=== PATIENT | female | born 1950 | race Caucasian/White ===

== ENCOUNTER 2023-03-07 12:11 | Emergency (ER) | payer MEDICARE, OTHER, SELFPAY ==
[2023-03-07 12:47] VITALS: BP 188/79; PULSE 70; RESP 18; TEMP 36.1; O2SAT 97; BMI 36.3
--- NOTE | 2023-03-07 12:51 | DI.RAD.S_ITS ---
PROCEDURE: XR SHOULDER LT MIN 2V INDICATIONS: fall one week ago/pain TECHNIQUE: 3 views of the shoulder were acquired. COMPARISON: None. FINDINGS: Bones: No fractures or dislocations. No suspicious bony lesions. Visualized ribs appear intact. Soft tissues: No suspicious soft tissue calcifications. IMPRESSION: No fracture. No acute osseous lesion. If symptoms and/or clinical suspicion for pathology persists, further assessment with repeat radiographs (7-10 days) or advanced imaging (e.g. CT, MRI or bone scan) should be considered. Dictated by: Jennifer Mcneil MD, PhD on 03/07/2023 at 13:12 Approved by: Jennifer Mcneil MD, PhD on 03/07/2023 at 13:13
--- NOTE | 2023-03-07 14:22 | ED.UPPEXIN ---
HPI - Extremity Injury (Upper) <Mayito Daniels PA-C - Last Filed: 03/07/23 14:36> General Chief Complaint: Extremity Injury, Upper Stated Complaint: fell T-7/lt shoulder inj/pain Time Seen by Provider: 03/07/23 14:22 Source: patient Mode of arrival: Ambulatory History of Present Illness HPI narrative: 73-year-old female presents to the ED for a left shoulder injury that occurred 1 week prior to arrival. Patient had a mechanical fall last week when she slipped, falling on her left shoulder. Patient states that she has had left shoulder pain since then, making it difficult for her to sleep well at night and find a good position. Patient denies numbness, tingling, weakness. No head injury, no loss of consciousness. Related Data Allergies Allergy/AdvReac Type Severity Reaction Status Date / Time lisinopril Allergy Cough Verified 03/07/23 12:47 Review of Systems <Mayito Daniels PA-C - Last Filed: 03/07/23 14:36> Review of Systems ROS Unobtainable: All systems reviewed & are unremarkable except as noted in HPI and below Constitutional Constitutional: Denies chills, Denies fatigue, Denies fever(s), Denies frequent falls, Denies lethargy and Denies weakness Eyes Eyes: Denies change in vision, Denies eye discharge, Denies irritation and Denies loss of vision ENT Ears, Nose, Mouth, and Throat: Denies change in voice, Denies dizziness, Denies neck pain, Denies sore throat and Denies throat swelling Cardiovascular Cardiovascular: Denies chest pain, Denies irregular heart rhythm, Denies lightheadedness, Denies palpitations, Denies dyspnea, Denies dyspnea on exertion and Denies orthopnea Respiratory Respiratory: Denies cough, Denies dyspnea, Denies dyspnea on exertion and Denies wheezing Gastrointestinal Gastrointestinal: Denies abdominal pain, Denies change in bowel habits, Denies diarrhea, Denies nausea and Denies vomiting Genitourinary Genitourinary: Denies hematuria, Denies flank pain, Denies urinary incontinence and Denies urinary urgency Musculoskeletal Musculoskeletal: Denies back pain, Denies muscle weakness, Denies neck pain, Denies numbness and Denies tingling Comments: Left shoulder pain Integumentary/Breasts Skin/Breast: Denies pruritus, Denies erythema, Denies rash and Denies wounds Neurologic Neurologic: Denies behavioral changes, Denies confusion, Denies dizziness, Denies frequent falls, Denies loss of vision, Denies numbness, Denies tingling and Denies weakness Psychiatric Psychiatric: Denies anxiety, Denies behavioral changes, Denies confusion, Denies depression, Denies homicidal ideation and Denies suicidal ideation Endocrine Endocrine: Denies fatigue, Denies flushing and Denies palpitations Hematologic/Lymphatic Hematologic/Lymphatic: Denies easy bruising Allergic/Immunologic Allergic/Immunologic: Denies urticaria, Denies throat swelling and Denies wheezing Patient History <Mayito Daniels PA-C - Last Filed: 03/07/23 14:36> Social History Smoking Status: Never smoker Smoking Status: Never smoker alcohol intake frequency: holidays/special occasions only Substance Use Type: does not use Exam <Mayito Daniels PA-C - Last Filed: 03/07/23 14:36> Narrative Exam Narrative: Const General:?cooperative, healthy appearing and comfortable [facility] Head:?normal to inspection Ears:?hearing grossly normal bilaterally Nose:?external nose normal Face and sinus:?normal facial exam and sinuses nontender Mouth:?oral mucosae normal Throat:?posterior oropharynx normal Eyes General:?appearance normal, both eyes and all related structures Neck Neck:?normal visual inspection and no lymphadenopathy noted Resp Effort & Inspection:?normal respiratory effort Auscultation:?clear to auscultation bilaterally Cardio Rate:?regular rate Rhythm:?regular rhythm Musculoskeletal There is some tenderness to palpation of the left shoulder. No swelling, bruising, deformity. There is full range of motion. Strength and sensation is intact. Patient is neurovascularly intact. Neuro General:?patient alert, patient awake and patient oriented x3 Initial Vital Signs Initial Vital Signs: Vital Signs Temperature 97.0 F L 03/07/23 12:47 Pulse Rate 70 03/07/23 12:47 Respiratory Rate 18 03/07/23 12:47 Blood Pressure 188/79 H 03/07/23 12:47 Pulse Oximetry 97 03/07/23 12:47 Oxygen Delivery Method Room Air 03/07/23 12:47 <Michael Dobbins MD - Last Filed: 03/08/23 07:16> Initial Vital Signs Initial Vital Signs: Vital Signs Temperature 97.0 F L 03/07/23 12:47 Pulse Rate 70 03/07/23 12:47 Respiratory Rate 18 03/07/23 12:47 Blood Pressure 188/79 H 03/07/23 12:47 Pulse Oximetry 97 03/07/23 12:47 Oxygen Delivery Method Room Air 03/07/23 12:47 Course <Mayito Daniels PA-C - Last Filed: 03/07/23 14:36> Orders Ordered: Discontinued Medications Lidocaine (Lidocaine Patch 1 Each Adh..Patch) 1 each TOP NOW ONE Stop: 03/07/23 14:32 Last Admin: 03/07/23 14:34 Dose: 1 each Documented By: CARMEN Vital Signs Vital signs: Vital Signs - 8 hr 03/07/23 12:47 03/07/23 14:28 03/07/23 14:29 Temperature 97.0 F L Pulse Rate 70 67 Respiratory Rate 18 18 Blood Pressure 188/79 H 145/65 H Pulse Oximetry 97 100 Oxygen Delivery Method Room Air Room Air <Michael Dobbins MD - Last Filed: 03/08/23 07:16> Orders Ordered: Discontinued Medications Lidocaine (Lidocaine Patch 1 Each Adh..Patch) 1 each TOP NOW ONE Stop: 03/07/23 14:32 Last Admin: 03/07/23 14:34 Dose: 1 each Documented By: CARMEN Vital Signs Vital signs: Vital Signs - 8 hr 03/07/23 12:47 03/07/23 14:28 03/07/23 14:29 Temperature 97.0 F L Pulse Rate 70 67 Respiratory Rate 18 18 Blood Pressure 188/79 H 145/65 H Pulse Oximetry 97 100 Oxygen Delivery Method Room Air Room Air MDM - Extremity Injury (Upper) <Mayito Daniels PA-C - Last Filed: 03/07/23 14:36> MDM Narrative Medical decision making narrative: 73-year-old female presents to the ED for a left shoulder injury that occurred 1 week prior to arrival. Concern for fracture/dislocation versus musculoskeletal sprain/strain versus other. X-ray was obtained with no acute findings. Patient's symptoms likely due to a musculoskeletal sprain/strain. Discussed findings with patient. Recommend supportive care with heat packs, Tylenol, ibuprofen, lidocaine patches. Recommend follow-up with ortho specialist as soon as possible. Patient does have an ortho specialist that she sees for her knee. ED return precautions were discussed with patient. Patient verbalized understanding. Medical records reviewed: Yes Discharge Plan Departure Patient Disposition: Home Clinical Impression: Shoulder injury Instructions: DI for Shoulder Sprain Activity Restrictions/Additional Instructions: You were evaluated in the ED today for a left shoulder injury. Your x-ray did not show any fractures or dislocations. It appears that you might have a shoulder sprain and bruised your shoulder. You may apply lidocaine patches (Salonpas), apply heat packs to the injury. You may take 600 mg of ibuprofen 3 times a day with food. You can also take 1000 mg of Tylenol 3 times a day. Please do not exceed 3000 mg of Tylenol per day. Please follow-up with your ortho specialist as soon as possible. Return to the ED if you experience any numbness, tingling, weakness. Stand Alone Forms: Patient Portal/API <Michael Dobbins MD - Last Filed: 03/08/23 07:16> [facility] Att[facility]: I was immediately available in the department for consultation. ?This documentation has been reviewed and I agree with assessment and plan. Supervised by Michale Dobbins MD
[2023-03-07 14:28] VITALS: PULSE 67; RESP 18; O2SAT 100
[2023-03-07 14:29] VITALS: BP 145/65
[2023-03-07] MEDS: LIDOCAINE PATCH 1 EACH ADH..PATCH TOP (14:34)
== END 2023-03-07 14:37 | disposition home or self-care (01) ==
PROVIDERS: Emergency Provider Student in an Organized Health Care Education/Training Program
DX: S49.92XA Unspecified injury of left shoulder and upper arm, initial encounter (principal); W01.0XXA Fall on same level from slipping, tripping and stumbling without subsequent striking against object, initial encounter
CPT/HCPCS: 73030; 99283